=== PATIENT | male | born 2000 | race Caucasian/White ===

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

== ENCOUNTER 2020-12-07 20:34 | Observation (INO) | payer OTHER ==
[~2020-12-07] VITALS: Ht 167.6 cm; Wt 60.5 kg
[~2020-12-07 20:34] MED LIST changes: +HYDR-3715 PO; +NORC1TAB7 PO; -NORCOTAB PO
--- OUTSIDE RECORDS SUMMARY | 2020-12-07 20:40 | CCD ---
Author Author [facility] Organization [facility] Address Unknown Phone Unavailable Support Name Relationship Address Phone Jonathan Alcaraz Next Of Kin [address] [place] [address] BIG DOG DAIRY Next Of Kin [address] [place] [address] UE Next Of Kin Unknown Unavailable ST Next Of Kin Unknown Unavailable SCOTT LOPEZ Next Of Kin [address] [place] [address] AVELINO LOPEZ JR Next Of Kin [address] [place] [address] Re-disclosure Warning The records that you are about to access may contain information from federally-assisted alcohol or drug abuse programs. If such information is present, then the following federally mandated warning applies: This information has been disclosed to you from records protected by federal confidentiality rules (42 CFR part 2). The federal rules prohibit you from making any further disclosure of this information unless further disclosure is expressly permitted by the written consent of the person to whom it pertains or as otherwise permitted by 42 CFR part 2. A general authorization for the release of medical or other information is NOT sufficient for this purpose. The Federal rules restrict any use of the information to criminally investigate or prosecute any alcohol or drug abuse patient.The records that you are about to access may contain highly sensitive health information, the redisclosure of which is protected by Article 27-F of the [facility] Public Health law. If you continue you may have access to information: Regarding HIV / AIDS; Provided by facilities licensed or operated by the [facility] Office of Mental Health; or Provided by the [facility] Office for People With Developmental Disabilities. If such information is present, then the following [facility] mandated warning applies: This information has been disclosed to you from confidential records which are protected by state law. State law prohibits you from making any further disclosure of this information without the specific written consent of the person to whom it pertains, or as otherwise permitted by law. Any unauthorized further disclosure in violation of state law may result in a fine or long-term sentence or both. A general authorization for the release of medical or other information is NOT sufficient authorization for further disc losure. Family History Family Member Name Family Member Gender Family Member Status Date o f Status Description Data Source(s) Unknown Male Problem MEDENT ([facility]) Unknown Unknown Insurance Providers Payer name Policy type / Coverage type Policy ID Covered constitution party ID Covered constitution party's relationship to nielsen Policy Nielsen Plan Information MVP MCDO [id number] SP [id number] Medicaid Dental P [id number] S [id number] Ghi FHP-(DO Not Use) Medigap Part B [id number] Self [id number] [place] Part B [id number] Self [id number] MVP Medicaid Commercial [id number] Self [id number] Ghi FHP-(DO Not Use) Medigap Part B [id number] Self [id number] [place] Part B [id number] Self [id number] MVP Medicaid Commercial [id number] Self [id number] [facility] [id number] SP [id number] MEDICAID [id number] SP [id number] MVP MCDO [id number] SP [id number] SELF PAY ONLY [id number] MO2 [id number] Ghi FHP-(DO Not Use) Commercial [id number] Self [id number] Ghi FHP-(DO Not Use) Commercial [id number] Self [id number] Ghi FHP-(DO Not Use) Commercial [id number] Self [id number] SELF PAY ONLY [id number] SP [id number] Ghi FHP-(DO Not Use) Commercial [id number] Family Dependent [id number] MEDICAID [id number] SP [id number] [facility] [id number] SP [id number] [facility] O [id number] S [id number] [facility] [id number] SP [id number] [facility] Health Maintenance Organization (HMO) Self Medicaid Dental P [id number] S [id number]
[2020-12-07] MEDS: DOCUSATE SODIUM 100MG CAPSULE PO SCH (21:00)
[2020-12-07 21:37] LABS: BASO # 0.1 10^3/uL (0.0-0.2); BASO % 0.4 % (0.0-1.0); EOS % 0.1 % (0.0-3.0); HEMOGLOBIN 17.1 g/dl (13.5-17.5); LYMPH # 1.9 10^3/uL (1.5-5.0); LYMPH % 9.3 % (24.0-44.0); MEAN CORPUSCULAR HEMOGLOBIN 28.8 pg (27.0-33.0); MEAN CORPUSCULAR HGB CONC 33.5 g/dl (32.0-36.5); NEUTROPHILS # 16.2 10^3/uL (1.5-8.5); NEUTROPHILS % 79.8 % (36.0-66.0); PLATELET COUNT, AUTOMATED 241 10^3/uL (150-450); RED BLOOD COUNT 5.93 10^6/uL (4.30-6.10); WHITE BLOOD COUNT 20.4 10^3/uL (4.0-10.0)
[2020-12-07 22:12] LABS: ALBUMIN 4.7 GM/DL (3.2-5.2); ALT/SGPT 45 U/L (12-78); BILIRUBIN,DIRECT 0.2 MG/DL (0.0-0.2); BILIRUBIN,TOTAL 0.8 MG/DL (0.2-1.0); BLOOD UREA NITROGEN 10 MG/DL (7-18); CALCIUM LEVEL 9.4 MG/DL (8.5-10.1); CARBON DIOXIDE LEVEL 31 MEQ/L (21-32); CHLORIDE LEVEL 105 MEQ/L (98-107); CREATININE FOR GFR 1.02 MG/DL (0.70-1.30); GLUCOSE, FASTING 94 MG/DL (70-100); LIPASE 70 U/L (73-393); POTASSIUM SERUM 3.6 MEQ/L (3.5-5.1); SODIUM LEVEL 139 MEQ/L (136-145); TOTAL PROTEIN 7.7 GM/DL (6.4-8.2)
--- OUTSIDE RECORDS SUMMARY | 2020-12-07 22:20 | CCD ---
Author Author [facility] Organization [facility] Address Unknown Phone Unavailable Support Name Relationship Address Phone Jonathan Alcaraz Next Of Kin [address] [place] [address] BIG DOG DAIRY Next Of Kin [address] [facility] [address] [place] [address] UE Next Of Kin Unknown Unavailable ST Next Of Kin Unknown Unavailable SCOTT LOPEZ Next Of Kin [address] [facility] [address] [place] [address] AVELINO LOPEZ JR Next Of Kin [address] [facility] [address] [place], [place] [id number] Re-disclosure Warning The records that you are [...] is protected by Article 27-F of the [facility] Public Health law. If you continue you may have access to information: Regarding HIV / AIDS; Provided by facilities licensed or operated by the [facility] Office of Mental Health; or Provided by the [facility] Office for People With Developmental Disabilities. If such information is present, then the following [facility] mandated warning applies: This information has been [...] law may result in a fine or half-way sentence or both. A general authorization for the release of medical or other information is NOT sufficient authorization for further disc losure. Family History Family Member Name Family Member Gender Family Member Status Date o f Status Description Data Source(s) Unknown Male Problem MEDENT ([facility]) Unknown Unknown Insurance Providers Payer name Policy type / Coverage type Policy ID Covered democrat ID Covered democrat's relationship to nielsen Policy Nielsen Plan Information [facility] [id number] SP [id number] Medicaid Dental P [id number] S [id number] Ghi FHP-(DO Not Use) Medigap Part B [id number] Self [id number] [place] Med[place] Part B [id number] Self [id number] MVP Medicaid Commercial [id number] Self [id number] Ghi FHP-(DO Not Use) Medigap Part B [id number] Self [id number] [place] Med[place] Part B [id number] Self [id number] MVP Medicaid Commercial [id number] Self [id number] [facility] [id number] SP [id number] MEDICAID [id number] SP [id number] MVP MCDO [id number] SP [id number] SELF PAY ONLY [id number] MO2 [id number] Ghi FHP-(DO Not Use) Commercial [id number] Self [id number] Ghi FHP-(DO Not Use) Commercial [id number] Self [id number] Ghi FHP-(DO Not Use) Commercial [id number] Self [id number] SELF PAY ONLY [id number] SP [id number] Ghi FHP-(DO Not Use) Commercial [id number] Family Dependent [id number] MEDICAID [id number] SP [id number] [facility] COMMUNITY PLAN [facility] [id number] SP [id number] [facility] O [id number] S [id number] [facility] COMMUNITY PLAN MCDO [id number] SP [id number] [facility] Health Maintenance Organization (HMO) Self Medicaid Dental P [id number] S [id number]
--- NOTE | 2020-12-07 22:42 | REPVR ---
PROCEDURE INFORMATION: Exam: US Scrotum Exam date and time: 12/07/2020 10:29 PM Age: 20 years old Clinical indication: Scrotum pain; Additional info: Left testicle pain TECHNIQUE: Imaging protocol: Real-time ultrasound of the scrotum and contents with color Doppler and image documentation. COMPARISON: No relevant prior studies available. FINDINGS: Right testicle: Normal. No mass. No torsion. Normal vascular flow. Left testicle: Normal. No mass. No torsion. Normal vascular flow. Epididymides: Normal. Scrotum: Normal. IMPRESSION: Normal scrotal ultrasound. Electronically signed by: Mario Ngo On 12/07/2020 22:42:41 PM
[2020-12-07] MEDS ORDERED: ISOVUE-370 76% 100ML VIAL As Ordered ONE (22:46)
--- NOTE | 2020-12-07 23:07 | REPVR ---
PROCEDURE INFORMATION: Exam: CT Abdomen And Pelvis With Contrast Exam date and time: 12/07/2020 10:57 PM Age: 20 years old Clinical indication: Abdominal pain; Generalized; Additional info: Left flank pain; Trauma TECHNIQUE: Imaging protocol: Computed tomography of the abdomen and pelvis with intravenous contrast. Radiation optimization: All CT scans at this facility use at least one of these dose optimization techniques: automated exposure control; mA and/or kV adjustment per patient size (includes targeted exams where dose is matched to clinical indication); or iterative reconstruction. Contrast material: ISOVUE 370; Contrast volume: 100 ml; Contrast route: INTRAVENOUS (IV); COMPARISON: No relevant prior studies available. FINDINGS: Liver: Normal. No mass. Gallbladder and bile ducts: Normal. No calcified stones. No ductal dilation. Pancreas: Normal. No ductal dilation. Spleen: Normal. No splenomegaly. Adrenal glands: Normal. No mass. Kidneys and ureters: 6 mm simple benign left renal cyst. Recommend delayed images to evaluate for ureteral, or renal pelvic injury. Stomach and bowel: Unremarkable. No obstruction. No mucosal thickening. Appendix: No evidence of appendicitis. Intraperitoneal space: Unremarkable. No free air. No significant fluid collection. Retroperitoneal space: Moderate left perinephric fluid, also extending along the course of the ureter in the retroperitoneum to the lower abdomen. Vasculature: Retroaortic left renal vein. Lymph nodes: Unremarkable. No enlarged lymph nodes. Urinary bladder: Unremarkable as visualized. Reproductive: Unremarkable as visualized. Bones/joints: Unremarkable. No acute fracture. Soft tissues: Unremarkable. IMPRESSION: Moderate left perinephric fluid, also extending along the course of the ureter in the retroperitoneum to the lower abdomen. Recommend delayed images to evaluate for ureteral, or renal pelvic injury. COMMENTS: Consistent with the [employer] College of [employer]'s Incidental Findings Committee white paper (J Am Lemuel Radiol 2018): Any incidental renal lesion less than 1 cm or classified as too small to characterize, or any incidental cystic renal lesion characterized as simple-appearing, is likely benign. No follow-up imaging is recommended for these lesions per consensus recommendations based on imaging criteria. Electronically signed by: Mario Ngo On 12/07/2020 23:07:50 PM
[2020-12-07] MEDS ORDERED: ONDANSETRON 4MG/2ML VIAL IV ONE (23:15)
[2020-12-07] MEDS ORDERED: NS 1,000 ML IV ONE (23:30)
[2020-12-07] MEDS ORDERED: MORPHINE 2 MG/ML 1ML VIAL (J2270) IV ONE (23:30)
[2020-12-08] LABS: INR 1.11; PROTHROMBIN TIME 14.6 SECONDS (12.5-14.3)
[2020-12-08 00:01] LABS: PARTIAL THROMBOPLASTIN TIME 30.1 SECONDS (24.2-38.5)
[2020-12-08] MEDS ORDERED: RA M10TA PO (00:26)
[2020-12-08 00:52] LABS: RSV AMPLIFICATION NEGATIVE (NEGATIVE)
[2020-12-08] MEDS ORDERED: MOM 30ML SUSPENSION UDC PO PRN (01:00)
[2020-12-08] MEDS ORDERED: MAALOX 30 ML SUSP *UDC PO PRN (01:00)
[2020-12-08] MEDS ORDERED: ACETAMINOPHEN TAB 650MG DOSE (2X325MG) PO PRN (01:00)
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
--- OUTSIDE RECORDS SUMMARY | 2020-12-08 01:07 | CCD ---
Author Author [facility] Organization [facility] Address Unknown Phone Unavailable Support Name Relationship Address Phone Jonathan Alcaraz Next Of Kin [address] [place] [address] BIG DOG DAIRY Next Of Kin [address] [facility] [address] [place] [address] UE Next Of Kin Unknown Unavailable ST Next Of Kin Unknown Unavailable SCOTT LOPEZ Next Of Kin [address] [facility] [address] [place] [address] AVELNIO LOPEZ JR Next Of Kin [address] [facility] [address] [place], [place] [id number] Re-disclosure Warning The records that you are [...] is protected by Article 27-F of the [facility] Public Health law. If you continue you may have access to information: Regarding HIV / AIDS; Provided by facilities licensed or operated by the [facility] Office of Mental Health; or Provided by the [facility] Office for People With Developmental Disabilities. If such information is present, then the following [facility] mandated warning applies: This information has been [...] law may result in a fine or mcc sentence or both. A general authorization for the release of medical or other information is NOT sufficient authorization for further disc losure. Family History Family Member Name Family Member Gender Family Member Status Date o f Status Description Data Source(s) Unknown Male Problem [facility] ([facility]) Unknown Unknown Insurance Providers Payer name Policy type / Coverage type Policy ID Covered republican ID Covered republican's relationship to nielsen Policy Nielsen Plan Information MVP [facility] [id number] SP [id number] Medicaid Dental P [id number] S [id number] Ghi FHP-(DO Not Use) Medigap Part B [id number] Self [id number] [place] Part B [id number] Self [id number] MVP Medicaid Commercial [id number] Self [id number] Ghi FHP-(DO Not Use) Medigap Part B [id number] Self [id number] [place] Part B [id number] Self [id number] MVP Medicaid Commercial [id number] Self [id number] [facility] [id number] SP [id number] MEDICAID [id number] SP [id number] MVP MCDO [id number] SP [id number] SELF PAY ONLY [id number] MO2 [id number] Ghi FHP-(DO Not Use) Commercial [id number] Self [id number] Ghi FHP-(DO Not Use) Commercial [id number] Self [id number] Ghi FHP-(DO Not Use) Commercial [id number] Self [id number] SELF PAY ONLY [id number] SP [id number] Ghi FHP-(DO Not Use) Commercial [id number] Family Dependent [id number] MEDICAID [id number] SP [id number] [facility] COMMUNITY PLAN [facility] [id number] SP [id number] [facility] O [id number] S [id number] [facility] COMMUNITY PLAN MCDO [id number] SP [id number] [facility] Health Maintenance Organization (HMO) Self Medicaid Dental P [id number] S [id number]
[2020-12-08] MEDS ORDERED: METAL LOCK LOOP XX ONE (02:29)
[2020-12-08 02:52] VITALS: BP 109/59
[2020-12-08 04:58] VITALS: BP 115/60
[2020-12-08] MEDS: DOCUSATE SODIUM 100MG CAPSULE PO SCH (07:45)
--- NOTE | 2020-12-08 08:01 | REP ---
INDICATION: leukocytosis COMPARISON: None. TECHNIQUE: Portable AP view of the chest FINDINGS: The mediastinum and cardiac silhouette are within normal limits for portable technique. The lung delgadillo are clear without acute consolidation, effusion, or pneumothorax. Skeletal structures are intact. IMPRESSION: No acute cardiopulmonary process appreciated. <Electronically signed by Juan Hutson > 12/08/20 075
[2020-12-08 08:59] LABS: HEMATOCRIT 45.3 % (42.0-52.0); HEMOGLOBIN 15.1 g/dl (13.5-17.5); MEAN CORPUSCULAR HEMOGLOBIN 28.9 pg (27.0-33.0); MEAN CORPUSCULAR HGB CONC 33.3 g/dl (32.0-36.5); MEAN CORPUSCULAR VOLUME 86.6 fl (80.0-96.0); PLATELET COUNT, AUTOMATED 216 10^3/uL (150-450); RED BLOOD COUNT 5.23 10^6/uL (4.30-6.10); WHITE BLOOD COUNT 14.7 10^3/uL (4.0-10.0)
[2020-12-08 09:29] LABS: BLOOD UREA NITROGEN 10 MG/DL (7-18); CALCIUM LEVEL 8.9 MG/DL (8.5-10.1); CARBON DIOXIDE LEVEL 24 MEQ/L (21-32); CHLORIDE LEVEL 107 MEQ/L (98-107); GLUCOSE, FASTING 82 MG/DL (70-100); POTASSIUM SERUM 3.4 MEQ/L (3.5-5.1); SODIUM LEVEL 140 MEQ/L (136-145)
[2020-12-08 12:37] LABS: APPEARANCE, URINE CLOUDY (CLEAR); BACTERIA, URINE AUTO NEGATIVE (NEGATIVE); BILIRUBIN, URINE AUTO NEGATIVE (NEGATIVE); BLOOD, URINE BLOOD 3+ (NEGATIVE); COLOR, URINE YELLOW (YELLOW); GLUCOSE, URINE (UA) AUTO NEGATIVE (NEGATIVE); KETONE, URINE AUTO 2+ mg/dL (NEGATIVE); LEUKOCYTE ESTERASE, URINE AUTO NEGATIVE (NEGATIVE); MUCUS, URINE SMALL (NEGATIVE); NITRITE, URINE AUTO NEGATIVE (NEGATIVE); PROTEIN, URINE AUTO 2+ mg/dL (NEGATIVE); RBC, URINE AUTO TNTC /HPF (0-3); SPECIFIC GRAVITY URINE AUTO 1.034 (1.002-1.035); SQUAMOUS EPITHELIAL CELL UR AU 1 /HPF (0-6); UROBILINOGEN, URINE AUTO 0.2 mg/dL (0.0-2.0); WBC, URINE AUTO 4 /HPF (0-3)
[2020-12-08] MEDS ORDERED: ACET1TAB55 PO (14:30)
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
== END 2020-12-08 15:05 | disposition home or self-care (01) ==
LOC: M ED 20:34 → M ED INP 20:35 → M MS5PR 12-08 02:50
PROVIDERS: ADMIT Family Medicine; ATTEND Internal Medicine Nephrology
DX: R31.0 Gross hematuria (principal); S37.19XA Other injury of ureter, initial encounter; V86.92XA Unspecified occupant of snowmobile injured in nontraffic accident, initial encounter; Y92.838 Other recreation area as the place of occurrence of the external cause; Y93.23 Activity, snow (alpine) (downhill) skiing, snowboarding, sledding, tobogganing and snow tubing; Y99.9 Unspecified external cause status; N50.812 Left testicular pain; N28.89 Other specified disorders of kidney and ureter; Z91.81 History of falling
CPT/HCPCS: 36415; 71045; 74177; 76870; 80048; 80076; 81001; 83690; 85025; 85027; 85610; 85730; 86850; 86900; 86901; 87086; 87631; 93976; 96374; 96375; 99285; J2270; J2405; Q9967

== ENCOUNTER → 2020-12-21 | Outpatient (REF) | payer OTHER, MEDICAID ==
[~2020-12-21] MED LIST changes: +ACET1TAB55 PO; +RA M10TA PO
[2020-12-21 17:49] LABS: APPEARANCE, URINE CLEAR (CLEAR); BACTERIA, URINE AUTO NEGATIVE (NEGATIVE); BILIRUBIN, URINE AUTO NEGATIVE (NEGATIVE); BLOOD, URINE BLOOD NEGATIVE (NEGATIVE); COLOR, URINE STRAW (YELLOW); GLUCOSE, URINE (UA) AUTO NEGATIVE (NEGATIVE); KETONE, URINE AUTO NEGATIVE (NEGATIVE); LEUKOCYTE ESTERASE, URINE AUTO NEGATIVE (NEGATIVE); MUCUS, URINE SMALL (NEGATIVE); NITRITE, URINE AUTO NEGATIVE (NEGATIVE); PROTEIN, URINE AUTO NEGATIVE (NEGATIVE); RBC, URINE AUTO 0 /HPF (0-3); SPECIFIC GRAVITY URINE AUTO 1.004 (1.002-1.035); SQUAMOUS EPITHELIAL CELL UR AU 0 /HPF (0-6); UROBILINOGEN, URINE AUTO 0.2 mg/dL (0.0-2.0); WBC, URINE AUTO 0 /HPF (0-3)
== END ==
LOC: M SMT 17:04
PROVIDERS: ATTEND Urology
DX: S37.10XD Unspecified injury of ureter, subsequent encounter (principal); X58.XXXD Exposure to other specified factors, subsequent encounter

== ENCOUNTER → 2021-09-29 | Outpatient (CLI) | payer OTHER | LOC: M LABSMTC 11:48 | PROVIDERS: ATTEND Pediatrics | DX: Z11.52 Encounter for screening for COVID-19 (principal) ==

== ENCOUNTER 2023-03-14 09:12 | Emergency (ER) | payer OTHER ==
[~2023-03-14] VITALS: Ht 167.6 cm; Wt 63.7 kg
[2023-03-14] MEDS ORDERED: CYCL-707 PO (11:20)
[2023-03-14] MEDS ORDERED: NAPR-837 PO (11:20)
[2023-03-14 11:25] VITALS: BP 121/65
== END 2023-03-14 11:28 | disposition home or self-care (01) ==
LOC: M ED 09:12
DX: S13.4XXA Sprain of ligaments of cervical spine, initial encounter (principal); V49.40XA Driver injured in collision with unspecified motor vehicles in traffic accident, initial encounter; F17.200 Nicotine dependence, unspecified, uncomplicated; F41.9 Anxiety disorder, unspecified; Z79.891 Long term (current) use of opiate analgesic; Z79.899 Other long term (current) drug therapy

== ENCOUNTER → 2024-04-30 | Outpatient (CLI) | payer OTHER ==
[~2024-04-30] MED LIST changes: +CYCL-707 PO; +NAPR-837 PO
== END ==
LOC: M WUC 10:55
PROVIDERS: ATTEND Nurse Practitioner Family
DX: M79.672 Pain in left foot (principal)